=== PATIENT | female | born 1970 | race Caucasian/White ===

== ENCOUNTER 2019-06-12 06:00 | Observation (INO) | payer OTHER ==
[2019-06-12] VITALS (7 sets, daily range): BP systolic 102–130; BP diastolic 50–73
[~2019-06-12] VITALS: Ht 165.1 cm; Wt 64.9 kg
[~2019-06-12 06:00] MED LIST: ceFAZolin SODIUM IV Push 1 GM VIAL. IVP PRN
[2019-06-12 06:49] LABS: BASO % 1 % (0-3); EOS # 0.1 x10^3/uL (0.0-0.7); EOS % 4 % (0-3); HEMATOCRIT 32.5 % (36.0-47.0); HEMOGLOBIN 11.2 g/dL (12.0-15.5); LYMPH % 35 % (24-48); MEAN CORPUSCULAR HEMOGLOBIN 35 pg (25-35); MEAN CORPUSCULAR HGB CONC 34 g/dL (31-37); MEAN CORPUSCULAR VOLUME 102 fL (79-100); MONO # 0.2 x10^3/uL (0.0-1.1); MONO % 8 % (0-9); NEUT # 1.6 x10^3/uL (1.8-7.7); NEUT % 53 % (31-73); PLATELET COUNT 263 x10^3/uL (140-400); RED BLOOD COUNT 3.18 x10^6/uL (3.50-5.40); RED CELL DISTRIBUTION WIDTH 12.9 % (11.5-14.5)
[2019-06-12] MEDS ORDERED: VALA500T PO (06:49)
[2019-06-12] MEDS ORDERED: VENL150C PO (06:49)
[2019-06-12] MEDS ORDERED: TRAZ-118 PO (06:49)
[2019-06-12] MEDS ORDERED: LANS30CA PO (06:50)
[2019-06-12] MEDS ORDERED: MULT-121 PO (06:51)
[2019-06-12] MEDS ORDERED: CYAN500T52 PO (06:51)
[2019-06-12] MEDS ORDERED: GABA600T7 PO (06:52)
[2019-06-12] MEDS ORDERED: TIZA4TAB2 PO (06:52)
[2019-06-12] MEDS ORDERED: HYDR-2769 PO (06:53)
[2019-06-12] MEDS ORDERED: IV RINGERS,LACTATED 1000ML 1,000 ML IV SCH ×2 (07:00→07:23)
[2019-06-12] MEDS ORDERED: PROPOFOL 20 ML IV ONE (07:29)
[2019-06-12] MEDS ORDERED: LIDOCAINE 2% PF 5 ML VIAL. ONE (07:29)
[2019-06-12] MEDS ORDERED: ROCURONIUM 50 MG/5 ML VIAL. ONE (07:29)
[2019-06-12] MEDS ORDERED: PROCHLORPERAZINE 10 MG/2 ML VIAL. IV PRN ×2 (07:30→10:00)
[2019-06-12] MEDS ORDERED: ONDANSETRON PF 4 MG/2 ML VIAL. IV PRN ×2 (07:30→10:00)
[2019-06-12] MEDS ORDERED: HYDROmorphone 2 MG/ML VIAL IV PRN (07:30)
[2019-06-12] MEDS ORDERED: LIDOCAINE 1% PF 2 ML VIAL. ID PRN (07:30)
[2019-06-12] MEDS ORDERED: fentaNYL PF VIAL 100 MCG/2 ML VIAL IV PRN (07:30)
[2019-06-12] MEDS ORDERED: ESTROGENS, CONJ VAGINAL CREAM 30GM TUBE. ONE (07:36)
[2019-06-12] MEDS ORDERED: BUPIVACAINE-EPI 0.25%-1:200000 MPF 30 ML VIAL. ONE (07:36)
[2019-06-12] MEDS ORDERED: SURGICEL HEMOSTAT 4X8 EACH. ONE (07:36)
[2019-06-12] MEDS ORDERED: LIDOCAINE 1%/EPI 1:100,000 20 ML VIAL. ONE (07:37)
[2019-06-12] MEDS ORDERED: INDIGOTINDISULFONATE SODIUM 40 MG/5 ML AMPUL. ONE (07:37)
[2019-06-12] MEDS ORDERED: DESFLURANE 61 TO 120 MINUTES IH ONE (08:06)
[2019-06-12] MEDS ORDERED: DEXAMETHASONE SOD PHOS 4 MG/ML VIAL ONE (08:06)
[2019-06-12] MEDS ORDERED: ONDANSETRON PF 4 MG/2 ML VIAL. ONE (08:11)
[2019-06-12] MEDS ORDERED: NEOSTIGMINE METHYLSULFATE 5 MG/5 ML SYRINGE. ONE (08:12)
[2019-06-12] MEDS ORDERED: GLYCOPYRROLATE 1 MG/5 ML VIAL. ONE (08:12)
[2019-06-12] MEDS ORDERED: PHENYLEPHRINE in 0.9% NACL PF 1 MG/10 ML SYRINGE. IV ONE (08:17)
[2019-06-12] MEDS ORDERED: FAMOTIDINE 20 MG/2 ML VIAL ONE (09:10)
--- NOTE | 2019-06-12 09:48 | PDOC ---
BRIEF OPERATIVE NOTE Date: Jun 12, 2019 Pre-Op Diagnosis CPP and Dyspareunia Post-Op Diagnosis Same Procedure Performed [facility] Surgeon Dr. Matias Senior Quality Technician Snag Grinder: Celesse Anesthesia Type: General Blood Loss 50 ml Specimens Obtained cervix, uterus, orestes. fallopian tubes Findings enlarged uterus, nml fallopian tubes and ovaries orestes. Complications none Operative Note see dictation LIONEL MATIAS Jr, MD Jun 12, 2019 09:48
--- NOTE | 2019-06-12 09:58 | OP ---
DATE OF SURGERY: PREOPERATIVE DIAGNOSES: Chronic pelvic pain, dyspareunia. POSTOPERATIVE DIAGNOSES: Chronic pelvic pain, dyspareunia. PROCEDURE: TLH via da Rasheeda robot. SURGEON: Lionel Matias MD STRAPPER AND BUFFER: Abiola. ANESTHESIA: GETA. ESTIMATED BLOOD LOSS: 50 mL. COMPLICATIONS: None. FINDINGS: Enlarged uterus, normal fallopian tubes and ovaries bilaterally. SUMMARY: A 48-year-old with long history of chronic pelvic pain, dyspareunia. She was treated in the past for endometriosis as well. The patient was counseled on risks, benefits, and expectations of hysterectomy and voiced clear understanding to proceed. DESCRIPTION OF PROCEDURE: The patient was taken to surgery suite and placed in dorsal lithotomy position. She was prepped with Betadine solution for vaginal prep and ChloraPrep for abdominal prep. After adequate anesthesia, bivalve speculum was placed vaginally. Anterior lip of the cervix grasped with single tooth tenaculum. Zenobia uterine manipulator was then placed. The bivalve speculum and single tooth tenaculum were removed. Attention was now placed on abdomen. Small transverse skin incision made just below the umbilicus with a scalpel. Veress needle was then placed through the infraumbilical incision site. The abdomen was allowed to insufflate up to 1.5 liters CO2 gas. The Veress needle was then removed. An 8-mm camera port was placed. The camera was positioned. The uterus was enlarged. Bilateral fallopian tubes and ovaries appeared normal bilaterally. There was no evidence of endometriosis upon evaluation. Additional incisions were made in the left and right lower quadrants, in which 8 mm trocars were placed. An accessory port was placed in the left upper quadrant, which was a 5-mm port placed. The robot was then docked in normal fashion. I then proceeded to the console. With aid of the bipolar and vessel sealer, the right round ligament was coagulated and dissected. The right fallopian tube was dissected away from the right adnexa using dissection with the vessel sealer. The right broad ligament was coagulated and dissected down to and including the right uterine artery. Bladder flap was created using blunt dissection along with the vessel sealer. Same process took place with left adnexa. Colpotomy was performed at the level of the vaginal ring. The cervix, uterus, bilateral fallopian tubes were then removed. The vaginal cuff was reapproximated using V-Loc suture in a running fashion. Suction irrigation was utilized to verify good hemostasis. Small amount of normal saline was left in posterior cul-de-sac. The robot was then undocked. The trocars were removed under direct visualization and the abdomen was allowed to deflate as much as possible along with mechanical manipulation. The 4 skin incisions were reapproximated using 4-0 Vicryl suture in subcuticular manner. A 0.25% Marcaine with epinephrine was injected at each incision site. Moist vaginal packing was placed vaginally. The patient tolerated the procedure well and was taken to recovery room in stable condition. Sponge and needle count correct x 3. LIONEL MATIAS MD DR: ROSA ELENA/dayanara JOB#: [id number] / [id number]
[2019-06-12] MEDS ORDERED: diphenhydrAMINE HCL 25 MG CAPSULE PO PRN (10:00)
[2019-06-12] MEDS ORDERED: ZOLPIDEM 5 MG TABLET. PO PRN (10:00)
[2019-06-12] MEDS ORDERED: diphenhydrAMINE 50 MG/ML VIAL IV PRN (10:00)
[2019-06-12] MEDS ORDERED: DEXTROSE 50% 25 GM / 50ML DISP.SYRIN. IV PRN (10:00)
[2019-06-12] MEDS ORDERED: SIMETHICONE 80 MG TAB.CHEW PO PRN (10:00)
[2019-06-12] MEDS ORDERED: OPIUM/BELLADONNA 30/16.2MG SUPP.RECT. PR PRN (10:00)
[2019-06-12] MEDS ORDERED: CALCIUM CARBONATE 500 MG TAB.CHEW PO PRN (10:00)
[2019-06-12] MEDS ORDERED: 0.9 % SODIUM CHLORIDE 10 ML DISP.SYRIN. IV PRN (10:00)
[2019-06-12] MEDS: fentaNYL PF VIAL 100 MCG/2 ML VIAL IV PRN ×2 (10:19→10:38)
[2019-06-12] MEDS: MORPHINE SULFATE 2 MG/ML VIAL. IV PRN ×2 (10:20→11:04)
[2019-06-12] MEDS: KETOROLAC 30 MG/ML VIAL. IV PRN ×2 (10:21→16:15)
[2019-06-12] MEDS: oxyCODONE/APAP 5/325 1 TAB TABLET PO PRN ×3 (12:42→21:55)
[2019-06-12] MEDS: GABAPENTIN 300 MG CAPSULE. PO SCH ×2 (14:18→21:55)
--- NOTE | 2019-06-12 18:58 | NUR ---
VOID CHARTED IN ERROR
[2019-06-13] VITALS: BP 121/48
[2019-06-13] MEDS: KETOROLAC 30 MG/ML VIAL. IV PRN (02:46)
[2019-06-13] MEDS: oxyCODONE/APAP 5/325 1 TAB TABLET PO PRN ×3 (02:47→10:56)
[2019-06-13 05:00] VITALS: BP 127/76
[2019-06-13 07:59] LABS: BASO % 0 % (0-3); EOS % 0 % (0-3); HEMATOCRIT 30.5 % (36.0-47.0); HEMOGLOBIN 10.4 g/dL (12.0-15.5); LYMPH # 1.6 x10^3/uL (1.0-4.8); LYMPH % 24 % (24-48); MEAN CORPUSCULAR HEMOGLOBIN 35 pg (25-35); MEAN CORPUSCULAR HGB CONC 34 g/dL (31-37); MEAN CORPUSCULAR VOLUME 103 fL (79-100); MONO # 0.4 x10^3/uL (0.0-1.1); MONO % 6 % (0-9); NEUT # 4.5 x10^3/uL (1.8-7.7); NEUT % 69 % (31-73); PLATELET COUNT 228 x10^3/uL (140-400); RED BLOOD COUNT 2.96 x10^6/uL (3.50-5.40); RED CELL DISTRIBUTION WIDTH 13.1 % (11.5-14.5); WHITE BLOOD COUNT 6.6 x10^3/uL (4.0-11.0)
[2019-06-13 09:11] VITALS: BP 114/38
[2019-06-13] MEDS: GABAPENTIN 300 MG CAPSULE. PO SCH ×2 (10:06→13:24)
[2019-06-13] MEDS ORDERED: IBUPROFEN 400 MG TABLET. PO PRN (13:15)
--- NOTE | 2019-06-13 14:26 | PDOC ---
SURGICAL PROGRESS NOTE Subjective Pt. feeling well. Pain controlled. Pt. ambulating, voiding and tolerating regular diet. Vital Signs Vital Signs Date Time Temp Pulse Resp B/P (MAP) Pulse Ox O2 Delivery O2 Flow Rate FiO2 06/13/19 13:24 Room Air 06/13/19 09:11 98.4 85 14 114/38 (63) 97 98.4 06/12/19 12:18 2.0 I&O Intake and Output 06/13/19 07:00 Intake Total 3300 ml Output Total 3970 ml Balance -670 ml Intake Oral 1800 ml IV Total 1500 ml Output Urine Total 3950 ml Estimated Blood Loss 20 ml # Voids 1 PATIENT HAS A ANTONIO: No General: Alert, Oriented X3, Cooperative HEENT: Atraumatic Lungs: Clear to auscultation Heart: Regular rate Abdomen: Normal bowel sounds, Soft, No tenderness, No masses Psych/Mental Status: Mental status NL Labs Laboratory Tests Test 06/12/19 06:26 06/12/19 06:38 06/13/19 05:50 Bedside Urine HCG, Qualitative Hcg negative (Negative) White Blood Count 3.0 x10^3/uL (4.0-11.0) 6.6 x10^3/uL (4.0-11.0) Red Blood Count 3.18 x10^6/uL (3.50-5.40) 2.96 x10^6/uL (3.50-5.40) Hemoglobin 11.2 g/dL (12.0-15.5) 10.4 g/dL (12.0-15.5) Hematocrit 32.5 % (36.0-47.0) 30.5 % (36.0-47.0) Mean Corpuscular Volume 102 fL (79-100) 103 fL (79-100) Mean Corpuscular Hemoglobin 35 pg (25-35) 35 pg (25-35) Mean Corpuscular Hemoglobin Concent 34 g/dL (31-37) 34 g/dL (31-37) Red Cell Distribution Width 12.9 % (11.5-14.5) 13.1 % (11.5-14.5) Platelet Count 263 x10^3/uL (140-400) 228 x10^3/uL (140-400) Neutrophils (%) (Auto) 53 % (31-73) 69 % (31-73) Lymphocytes (%) (Auto) 35 % (24-48) 24 % (24-48) Monocytes (%) (Auto) 8 % (0-9) 6 % (0-9) Eosinophils (%) (Auto) 4 % (0-3) 0 % (0-3) Basophils (%) (Auto) 1 % (0-3) 0 % (0-3) Neutrophils # (Auto) 1.6 x10^3/uL (1.8-7.7) 4.5 x10^3/uL (1.8-7.7) Lymphocytes # (Auto) 1.0 x10^3/uL (1.0-4.8) 1.6 x10^3/uL (1.0-4.8) Monocytes # (Auto) 0.2 x10^3/uL (0.0-1.1) 0.4 x10^3/uL (0.0-1.1) Eosinophils # (Auto) 0.1 x10^3/uL (0.0-0.7) 0.0 x10^3/uL (0.0-0.7) Basophils # (Auto) 0.0 x10^3/uL (0.0-0.2) 0.0 x10^3/uL (0.0-0.2) Laboratory Tests Test 06/13/19 05:50 White Blood Count 6.6 x10^3/uL (4.0-11.0) Red Blood Count 2.96 x10^6/uL (3.50-5.40) Hemoglobin 10.4 g/dL (12.0-15.5) Hematocrit 30.5 % (36.0-47.0) Mean Corpuscular Volume 103 fL (79-100) Mean Corpuscular Hemoglobin 35 pg (25-35) Mean Corpuscular Hemoglobin Concent 34 g/dL (31-37) Red Cell Distribution Width 13.1 % (11.5-14.5) Platelet Count 228 x10^3/uL (140-400) Neutrophils (%) (Auto) 69 % (31-73) Lymphocytes (%) (Auto) 24 % (24-48) Monocytes (%) (Auto) 6 % (0-9) Eosinophils (%) (Auto) 0 % (0-3) Basophils (%) (Auto) 0 % (0-3) Neutrophils # (Auto) 4.5 x10^3/uL (1.8-7.7) Lymphocytes # (Auto) 1.6 x10^3/uL (1.0-4.8) Monocytes # (Auto) 0.4 x10^3/uL (0.0-1.1) Eosinophils # (Auto) 0.0 x10^3/uL (0.0-0.7) Basophils # (Auto) 0.0 x10^3/uL (0.0-0.2) Assessment/Plan A: POD#1 s/p [facility] P: D/c home. LIONEL ROSENTHAL Jr, MD Jun 13, 2019 14:26
[2019-06-13] MEDS ORDERED: IBUP-1027 PO (14:29)
[2019-06-13] MEDS ORDERED: DOCU-109 PO (14:29)
[2019-06-13] MEDS ORDERED: OXYC1TAB15 PO (14:29)
--- NOTE | 2019-06-13 14:30 | DISCH ---
DISCHARGE INSTRUCTIONS Condition on Discharge Condition on Discharge: Stable Activity After Discharge Activity Instructions for Disc: Activity as tolerated Lifting Instructions after Dis: No heavy lifting Driving Instructions after Dis: No driving for 2 weeks Diet after Discharge Diet after Discharge: Regular Contacting the [facility] after DC Call your doctor for: Concerns you may have Follow-Up Follow up with: Dr. Matias in 2 wks. LIONEL MATIAS Jr, MD Jun 13, 2019 14:30
[2019-06-13 14:50] VITALS: BP 124/64
--- NOTE | 2019-06-13 16:16 | NUR ---
Discharge Note: DAWIT WATT MELBA Discharge instructions and discharge home medications reviewed with Patient and a copy given. All questions have been answered and understanding verbalized. Follow up appointments reviewed. The following instructions and handouts were given: Salpingectomy, Hysterectomy Information, Salpingectomy Care After Discontinued lines and drains: peripheral IV removed. Patient discharged to home with self-care via ambulation to private vehicle.
--- NOTE | 2019-06-16 14:06 | PATHOLOGY ---
[facility] Accession Number: [id number] . 01 Material submitted: . uterus - CERVIX, UTERUS, BILATERAL TUBES AND BILATERAL OVARIES. Modifiers: bilateral . 01 Clinical history: . Dyspareunia . 02 Diagnosis: "Uterus, bilateral ovaries and fallopian tubes", removal: - Cervix with mild chronic inflammation, squamous metaplasia, and Nabothian cyst. - Basalis endometrium. - Myometrium with leiomyoma, 1 (0.3 cm), and adenomyosis. - Right and left fallopian tubes with no significant histopathologic diagnosis. - Specimen weight: 69 grams. - No ovarian tissue present. (SKM/db; 06/16/2019) LBQ 06/16/2019 1156 Local . 02 Electronically signed: . Trevon Rausch MD, Pathologist NPI- [id number] . 01 Gross description: . The specimen is received in formalin, labeled "Osorio, Shannon, cervix, uterus, bilateral tubes, bilateral ovaries" and consists of a 69 g uterus with attached cervix measuring 7.6 x 4.5 x 3.1 cm. Attached is the right fimbriated fallopian tube (6.8 cm in length and 0.5 cm diameter) and left fimbriated fallopian tube (5.8 cm in length and 0.5 cm in diameter). No ovaries are present. The uterine serosa is dubon-brown smooth shiny. The slitlike 0.5 cm cervical os as far by glistening pink-dubon ectocervical mucosa. It is bivalved revealing a corrugated endocervical canal measuring 2.5 cm and length. The endometrial cavity is roughly triangular measuring 2.8 cm in length and 2.4 cm in width which is lined by a pink-dubon endometrium measuring 0.1 cm. Present within the cavity is a white T-shaped plastic IUD. The myometrium is pink-dubon measuring up to 1.8 cm an intramural white nodule measuring 0.3 cm. No additional mass lesions are identified. . Both right and left fallopian tubes are purple smooth shiny with sectioning revealing a well-defined lumen. Housing Quality Standard Inspector sections are submitted as follows: . A1: Anterior cervix A2: Posterior cervix A3: Anterior endomyometrium A4: Posterior endomyometrium A5: Myometrial nodule A6: Right fallopian tube A7: Left fallopian tube (SDY; 06/13/2019) SYU/SYU 06/16/2019 1151 Local . 02 Pathologist provided ICD-10: N72, N88.8, D25.9, N80.0 . 02 CPT . 956160 Specimen Comment: A courtesy copy of this report has been sent to [phone] Specimen Comment: Report sent to Specimen Comment: A duplicate report has been generated due to demographic updates. Performed at: 01 [facility] [address], [place] [id number] MD Lito Persaud MD Phone: [phone] Performed at: [facility] [address] [place], [place] [id number] MD Papo Holt MD Phone: [phone]
== END 2019-06-13 15:00 | disposition home or self-care (01) ==
LOC: SURG 06:00 → 3 NORTH 10:49
PROVIDERS: ADMIT Obstetrics & Gynecology; ATTEND Obstetrics & Gynecology
DX: N94.6 Dysmenorrhea, unspecified (principal); R10.2 Pelvic and perineal pain; N94.10 Unspecified dyspareunia
CPT/HCPCS: 36415; 58570; 81025; 85025; 86850; 86900; 86901; 88307; 96374; 96376; A7015; G0378; G0379; J0690; J0780; J1100; J1885; J2001; J2270; J2370; J2405; J2704; J2710; J3010; J3490; J7030; J7120; Q0163; S2900